=== PATIENT | male | born 1950 | race Caucasian/White ===

== ENCOUNTER 2023-03-08 01:23 | Outpatient (CLI) | payer MEDICARE, SELFPAY ==
--- NOTE | 2023-03-08 | DI.CTLCSR_ITS ---
Exam(s) CT CHEST LUNG CANCER SCREEN EXAM: CT CHEST LUNG CANCER SCREEN CLINICAL HISTORY: SCREENING FOR LUNG CA, CURRENT SMOKER, F17.210. TECHNIQUE: Imaging Protocol: Low Dose Technique CONTRAST MATERIAL: None COMPARISON: No exams were available for comparison FINDINGS: CHEST: LUNGS: There is subpleural 3 millimeter nodule in the lateral aspect of the left upper lobe. No othe r focal left lung findings nor pleural effusion.. In the opposite-right lung there are mild benign-a ppearing increased markings in the medial basal segment right lower lobe. No significant nodules. N o pleural effusions. No findings in trachea and mainstem bronchi. MEDIASTINUM: There is no obvious hilar nor mediastinal adenopathy. CARDIAC: Mild cardiomegaly. No pericardial effusion.Diameter of the ascending thoracic aorta is enla rged, measuring 4.1 cm. Diameter of the mid aspect of the thoracic aortic arch measures 2.7 cm. Angie meter of the proximal descending thoracic aorta measures 2 point 9 cm. Diameter of the mid descendin g thoracic aorta measures 2.7 cm. Diameter of the distal descending thoracic aorta measures 2.5 cm. OTHER: No significant adrenal masses seen. OSSEOUS: No significant osseous lesions.No fractures. IMPRESSION: 1. Benign-appearing lung nodules, as described above. 2. No confluent infiltrates nor pleural effusions nor intrathoracic adenopathy 3. Lung RADS Cat 2S - Benign Appearance / Behavior: Nodules with a very low likelihood of becoming a clinically active cancer due to size or lack of growth DILATED ASCENDING THORACIC AORTA NOTED WITH DIAMETER 4.1 CM Lung-RADS 1.0 CATEGORIES: Category 0 - Prior chest CT exam(s) being located for comparison. Category 1 - Annual screening in 12 months. No nodules or definitely benign nodules. Category 2 - Annual screening in 12 months. Benign appearance. Nodules with low likelihood of becomin g active cancer. Category 3 - 6-month follow-up. Probably benign. Short-term follow-up suggested. Nodules with low lik elihood of becoming active cancer. Category 4A - 3-month follow-up and CT/PET if >8 mm in size. Suspicious finding. Findings which requi re additional testing. Category 4B - Findings which require additional testing and tissue sampling. Category 4X - Category 3 or 4 nodules with additional features or imaging findings that increases the suspicion of malignancy. Modifier S- Potentially clinically significant findings (non lung cancer) RADIATION DOSE DELIVERED: 79.34mGy.cm Total DLP DATA REPOSITORY: All CT scans at this facility are submitted to the National Radiology Data Registry (NRDR) Dose Index Registry (DIR) with the [employer] (ACR). RADIATION OPTIMIZATION: All CT scans at this facility use at least one of these dose optimization te chniques: automated exposure control; mA and/or kV adjustment per patient size (includes targeted exa ms where dose is matched to clinical indication); or iterative reconstruction.
== END 2023-03-08 01:43 ==
PROVIDERS: PCP Family Medicine; Visit Provider Nurse Practitioner
DX: F17.210 Nicotine dependence, cigarettes, uncomplicated (principal); Z12.2 Encounter for screening for malignant neoplasm of respiratory organs
CPT/HCPCS: 71271

== ENCOUNTER → 2023-12-12 04:33 | Outpatient (CLI) | payer BC, SELFPAY ==
--- NOTE | 2023-12-12 14:30 | DI.US_ITS ---
APPROVED REPORT EXAM: Comprehensive 2D, Doppler, and color-flow Echocardiogram Patient Location: Out-Patient [facility] Sorter: Melanie Mccullough RDCS ([facility]) Indications: Pedal Edema Other Information Study Quality: Adequate. Technically limited study due to body habitus, smoker. Conclusion Normal left ventricular wall thickness and chamber size. Ejection fraction is 60%. Wall motion is n ormal Normal right ventricular size and function Both atria are normal in size There are no structural valvular abnormalities Trace aortic and mitral regurgitation Mild to moderate tricuspid regurgitation. Estimated right ventricular systolic pressure is 31 mm Wall motion Left Ventricle The left ventricle is normal size. The left ventricular systolic function is normal. The left ventric ular ejection fraction is within the normal range. There is normal left ventricular wall thickness. T here is normal LV segmental wall motion. There is no ventricular septal defect visualized. LVEF is 60 %. Right Ventricle The right ventricle is normal size. The right ventricular systolic function is normal. Atria The left atrium size is normal. The right atrium size is normal. The interatrial septum is intact wit h no evidence for an atrial septal defect. Aortic Valve The aortic valve is normal in structure. Aortic valve is trileaflet. There is no aortic valvular sten osis. Trace aortic regurgitation. Mitral Valve The mitral valve is normal in structure. No evidence of mitral valve stenosis. Trace mitral regurgita tion. Tricuspid Valve The tricuspid valve is normal in structure. There is no tricuspid valve stenosis. Mild to moderate tr icuspid regurgitation. The RVSP is 31.2mmHg. Pulmonic Valve The pulmonary valve is normal in structure. There is no pulmonic valvular stenosis. Trace pulmonic re gurgitation. Great Vessels The aortic root is normal in size. The ascending aorta is normal in size. Aortic arch is not well vis ualized. IVC is normal in size and collapses >50% with inspiration. Pericardium There is no pericardial effusion. 2D Dimensions IVSD d PLAX 0.80 cm M: 0.6-1.2 Ao Root d 3.23 cm M: 3.1 - 3.7 LVPW d PLAX 0.83 cm M: 0.6 - 1.2 Ao Asc Diam d 3.29 cm M: 2.6 - 3.4 LVID d PLAX 4.20 cm M: 4.2 - 5.8 LVDs 2.72 cm M: 2.5 - 4.0 LV EF Teichholz 64.4 % FS 34.78 % LV EDV (Teich) 77.2 mL LV ESV (Teich) 27.5 mL Auto EF LV EDV A4C 71.7 mL LV EDV A2C 82.8 mL LV EDV BP 76.9 mL LV ESV A4C 29.6 mL LV ESV A2C 32.8 mL LV ESV BP 31.1 mL LVEF(%) A4C 58.8 % LVEF(%) A2C 60.4 % LVEF(%) BP 59.5 % LV SV A4C 42.2 ml LV SV A2C 50.0 ml LV SV BP 45.8 ml LV CO A4C 2.4 L/min LV CO A2C 2.8 L/min LV CO BP 2.6 L/min HR A4C 57.60 BPM HR A2C 56.87 BPM LV EDV Index (BP) RV Strain Global Peak Long. Strain A4C 15.45 Global Peak Long. Strain A4C FW 18.49 LA Volume LA Length A4C 5.3 cm LA Length A2C 4.8 cm LA Area A4C s 16.73 cm2 LA Area A2C s 12.52 cm2 LA Vol A4C A-L 44.85 mL LA Vol A2C A-L 27.62 mL LA Vol Biplane A-L 36.9 mL LA Vol/BSA A4C A-L LA Vol/BSA A2C A-L LA Vol/BSA BP A-L 20.1 mL/m2 LA Vol A4C MOD 42.7 mL LA Vol A2C MOD 26.3 mL LA Vol BP MOD 35.0 mL RA Volume RA Area A4C 12.0 cm2 RA ESV A4C (A-L) 31.4mL RA Vol/BSA A4C A-L RA Length A4C 3.9 cm RA ESV A4C (MOD) 30.4mL LV Diastology MV E' medial 0.078 (>0.07 m/s) MV E Vmax 0.83 (0.4-1.3 m/s) MV E/E' MED 10.75 (<14) MV A Vmax 1.00 (0.4-1.3 m/s) E/A Ratio 0.8 Aortic Valve AoV Vmax 1.25 m/s LVOT Vmax 1.03 m/s AoV Peak Grad 6.3 mmHg LVOT Peak Grad 4.3 mmHg AoV Area (Vmax) 2.67 cm2 LVOT VTI 0.238 m AoV VTI 0.282 m LVOT Mean Grad 2.0 mmHg AoV Mean Raza. 0.76 m/s LVOT SV 76.94 mL AoV Mean Grad 2.7 mmHg LVOT Diam s 2.00 cm AoV Area (VTI) 2.72 cm2 Velocity Ratio 0.82 Mitral Valve MV DT 234 (160-240 msec) MV Vmax TIPS 0.88 m/s MV Mean Grad 1.0 (<2mmHg) MV VTI 0.333 m Pulmonary Valve PV Vmax 0.79 (0.5-1.5 m/s) RVOT Vmax 0.75 m/s PV Peak Grad 2.5 mmHg RVOT Peak Gr. 2.2 mmHg PV Mean Raza 0.57 m/s RVOT VTI 0.154 m PV Mean Grad 1.5 mmHg RVOT Mean Gr. 1.0 mmHg Tricuspid Valve RA Pressure 3.00 mmHg TR Vmax 2.66 m/s TV S' 0.15 m/s TR Peak Grad 28.2 mmHg RVSP (TR) 31.2 mmHg
== END ==
PROVIDERS: PCP Family Medicine; Visit Provider Nurse Practitioner
DX: R60.9 Edema, unspecified (principal)
CPT/HCPCS: 93306